=== PATIENT | female | born 1965 | race Caucasian/White ===

== ENCOUNTER 2020-04-12 11:36 | Outpatient (REF) | payer MEDICAID, SELFPAY ==
--- NOTE | ~2020-04-12 | MM_ITS ---
EXAMINATION: MM SCREENING DIGITAL BREAST TOMOSYNTHESIS, BILATERAL CLINICAL INFORMATION: Screening. Asymptomatic. The lifetime risk of breast cancer based on the Tyrer-Cuzick Model is 7%. COMPARISON: Mammography: 07/01/2018, 03/26/2012, 01/24/2011 TECHNIQUE: Digital breast tomosynthesis is performed in both the craniocaudal and mediolateral oblique views along with computer-aided detection (CAD). Synthesized 2D images are generated from the tomosynthesis. FINDINGS: There are scattered areas of fibroglandular density (ACR BI-RADS breast composition Category b). Parenchymal pattern is similar to prior exams and there is no developing density or interval mass or architectural abnormality. There is a small smooth waxing and waning nodule mid central 6:00 right breast similar to prior exams. No abnormal calcifications on the right. There are new punctate calcifications posterior upper outer left breast, possibly related to the vasculature. Patient will be recalled to further characterize. MM/MM tomosynthesis screening BI IMPRESSION: 1. Left: New calcifications posterior upper outer quadrant, possibly vascular. 2. Right: No significant changes from prior studies. ASSESSMENT: BI-RADS 0: Incomplete - Need Additional Imaging Evaluation RECOMMENDATION: 1. Additional views of the left breast (magnification exaggerated CC, magnification MLO). 2. Radiology department staff will contact the patient for additional imaging. This patient's information was entered into a reminder system with a target due date for their next mammogram.
== END 2020-04-12 11:37 | disposition home or self-care (01) ==
LOC: HO.MAMMO 11:36
PROVIDERS: PCP General Practice; Visit Provider General Practice
DX: Z12.31 Encounter for screening mammogram for malignant neoplasm of breast (principal)
CPT/HCPCS: 77063; 77067

== ENCOUNTER 2020-06-13 13:43 | Outpatient (REF) | payer MEDICAID, SELFPAY ==
--- NOTE | ~2020-06-13 | MM_ITS ---
EXAMINATION: MM DIAGNOSTIC DIGITAL MAMMOGRAPHY, LEFT CLINICAL INFORMATION: Recall from screening for calcifications posterior upper outer left breast. COMPARISON: Mammography: 04/12/2020, 07/01/2018, 03/26/2012 TECHNIQUE: Digital mammography is performed in the following views: Magnification CC, magnification MLO. FINDINGS: There are scattered areas of fibroglandular density (ACR BI-RADS breast composition Category b). There are a few calcifications in the area of interest posterior upper outer quadrant, loosely grouped 4-5 in number. Calcifications are less conspicuous than on the synthesized screening images. There are some vascular markings overlying this area. Management plan is to reassess calcifications in 6 months. Results are discussed with the patient at time of visit. MM/MM added views LT IMPRESSION: A few calcifications posterior upper outer left breast, probably benign. ASSESSMENT: BI-RADS 3: Probably Benign RECOMMENDATION: Diagnostic left mammography in 6 months. This patient's information was entered into a reminder system with a target due date for their next mammogram.
== END 2020-06-13 13:44 | disposition home or self-care (01) ==
LOC: HO.MAMMO 13:43
PROVIDERS: Visit Provider General Practice
DX: R92.1 Mammographic calcification found on diagnostic imaging of breast (principal)
CPT/HCPCS: 77065

== ENCOUNTER 2020-12-29 14:34 | Outpatient (REF) | payer MEDICAID, SELFPAY ==
--- NOTE | ~2020-12-29 | MM_ITS ---
EXAMINATION: MM DIAGNOSTIC DIGITAL BREAST TOMOSYNTHESIS, LEFT CLINICAL INFORMATION: Short interval six-month follow-up calcifications posterior upper outer left breast. The lifetime risk of breast cancer based on the Tyrer-Cuzick Model is 9%. COMPARISON: Mammography: 06/13/2020, 06/12/2020 (BI-RADS 0), 07/01/2018, 03/26/2012 TECHNIQUE: Digital breast tomosynthesis is performed in both the craniocaudal and mediolateral oblique views along with computer-aided detection (CAD). Synthesized 2D images are generated from the tomosynthesis. FINDINGS: There are scattered areas of fibroglandular density (ACR BI-RADS breast composition Category b). Parenchymal pattern is unremarkable. There is no significant mass or developing density or architectural abnormality. Loosely grouped calcifications posterior upper outer left breast are slightly coarser. On tomography, they appear to be likely related to superimposed vasculature. Calcifications will be reassessed again in 6 months at time of annual bilateral mammography. Results are provided to the patient at time of visit by the technologist. MM/MM tomosynthesis diagnostic LT IMPRESSION: No significant change posterior upper outer left calcifications, possibly related to vasculature. ASSESSMENT: BI-RADS 3: Probably Benign RECOMMENDATION: Diagnostic mammography at time of annual bilateral exam, due in 6 months. This patient's information was entered into a reminder system with a target due date for their next mammogram.
== END 2020-12-29 14:35 | disposition home or self-care (01) ==
LOC: HO.MAMMO 14:34
PROVIDERS: Visit Provider General Practice
DX: R92.1 Mammographic calcification found on diagnostic imaging of breast (principal)
CPT/HCPCS: 77061; 77065

== ENCOUNTER 2021-06-15 10:13 | Outpatient (REF) | payer MEDICAID, SELFPAY ==
--- NOTE | ~2021-06-15 | MR_ITS ---
EXAMINATION: MR BRAIN WITHOUT AND WITH CONTRAST MRI OF THE ORBITS WITHOUT AND WITH CONTRAST CLINICAL INFORMATION: Hemorrhage into left optic nerve sheath. COMPARISON: None TECHNIQUE: Multiplanar, multisequence MRI of the brain was obtained before and after the intravenous administration of 6 mL Gadavist. Multiplanar multisequence MR imaging of the orbits was done prior to and following the intravenous administration of the above. FINDINGS: MR BRAIN: Brain Volume: Within normal limits within the limitations of a qualitative assessment. Structural: No malformations. Brain and Meninges: DWI sequence demonstrates no restricted diffusion. Specifically, there is no evidence for acute or subacute cerebral ischemia. Scattered nonspecific subcentimeter T2 hyperintensities in the subcortical white matter of both cerebral hemispheres are noted, which are nonspecific findings. There is a prominent perivascular space in the right subinsular white matter. No intracranial mass lesions, abnormal enhancement, space-occupying process, mass effect, extra-axial fluid collection or hydrocephalus. Resendiz-white matter interface is preserved. Gradient refocused imaging demonstrates no evidence for hemorrhage, hemosiderin staining or abnormal mineral deposition. Ventricles and Subarachnoid Spaces: The ventricular system and subarachnoid spaces are within normal limits without hydrocephalus. Vascular: Signal voids are noted in the visualized major intracranial vessels. Osseous Structures, Sinuses/Mastoids, Extracranial Soft Tissues: Mucosal thickening in the ethmoid complex and maxillary sinuses noted with nasal septal deviation to the right. Visualized extracranial soft tissue structures appear unremarkable. Bony structures appear intact. There is spondylosis and disc degenerative change at C4-C5. MR/MR orbits face neck wo/w con IMPRESSION: 1. Nonspecific nonenhancing scattered subcortical white matter T2 hyperintensities in the cerebral hemispheres which could reflect chronic ischemic microangiopathy. 2. No acute intracranial process. No evidence for intracranial hemorrhage, extra-axial fluid collection, mass lesion, abnormal enhancement, space-occupying process, mass effect or hydrocephalus. 3. Paranasal sinus inflammatory changes. MR ORBIT FINDINGS: Globes and Lacrimal Glands: Normal, symmetric. No abnormal enhancement or proptosis. Periorbital/Preseptal soft tissues: Normal. Retrobulbar Fat: Normal signal. Extraocular Muscles/Optic Nerves: Symmetric with normal size and signal. No abnormal optic nerve sheath or optic nerve enhancement. Normal CSF signal intensity within the distal optic nerve sheaths bilaterally. Extraconal and Intraconal Spaces: Normal, no masses or enlarged vessels. Orbital Apices and Cavernous Sinuses: Normal apices; cavernous sinuses are symmetric and enhance normally. Sella/Suprasellar/Optic Apparatus: Normal, no masses or abnormal enhancement. Basil cisterns, brain stem: Normal. Osseous structures and visualized extracranial soft tissues: Intact. IMPRESSION: Unremarkable MRI of the orbits without and with contrast.
== END 2021-06-15 10:14 | disposition home or self-care (01) ==
LOC: HO.MRI 10:13
PROVIDERS: Visit Provider General Practice
DX: H53.10 Unspecified subjective visual disturbances (principal)
CPT/HCPCS: 70543; 70553; A9585

== ENCOUNTER 2021-06-30 13:30 | Outpatient (REF) | payer MEDICAID, SELFPAY ==
--- NOTE | ~2021-06-30 | MM_ITS ---
EXAMINATION: MM DIAGNOSTIC DIGITAL BREAST TOMOSYNTHESIS, BILATERAL CLINICAL INFORMATION: Loosely grouped calcifications posterior upper outer left breast for follow-up. Due for yearly. The lifetime risk of breast cancer based on the Tyrer-Cuzick Model is 8%. COMPARISON: Mammography: 12/29/2020, 06/13/2020, 04/12/2020 (BI-RADS 0), 07/01/2018, 03/26/2012 TECHNIQUE: Digital breast tomosynthesis is performed in both the craniocaudal and mediolateral oblique views along with computer-aided detection (CAD). Synthesized 2D images are generated from the tomosynthesis. Additional magnification left CC and magnification left ML views are obtained. FINDINGS: There are scattered areas of fibroglandular density (ACR BI-RADS breast composition Category b). Breast parenchymal pattern is similar to prior studies. There is no interval mass or architectural abnormality or developing density. Small nodular asymmetry central outer right breast on right CC view is similar to prior exams. The axilla and skin contours are unremarkable. No abnormal calcifications on the right. Left breast has some additional calcifications may be an anterior breasts which are vascular on tomography. The calcifications for follow-up posterior upper outer left breast are similar in number and not clearly vascular in etiology. As they have not presented as clearly vascular over time, stereotactic sampling is suggested. Results are discussed with the patient at time of visit. Management options discussed with patient. Patient wishes to proceed with stereotactic sampling. Results and recommendation called to medical front desk coordinator (Bailey) for Dr. Rodríguez on 06/30/2021. MM/MM tomosynthesis diagnostic BI IMPRESSION: Left: -Calcifications posterior upper outer left breast are not clearly vascular in etiology. There are new from 2019. Right: -No mammographic evidence of malignancy. ASSESSMENT: BI-RADS 4: Suspicious (subcategory 4A: Low suspicion for malignancy) RECOMMENDATION: Stereotactic sampling calcifications upper outer left breast. This patient's information was entered into a reminder system with a target due date for their next mammogram.
== END 2021-06-30 13:31 | disposition home or self-care (01) ==
LOC: HO.MAMMO 13:30
PROVIDERS: PCP General Practice; Visit Provider General Practice
DX: R92.1 Mammographic calcification found on diagnostic imaging of breast (principal)
CPT/HCPCS: 77062; 77066

== ENCOUNTER → 2021-07-04 08:08 | Outpatient (BNVA) | payer MEDICAID, SELFPAY | PROVIDERS: PCP General Practice; Referring Provider General Practice; Visit Provider Surgery | DX: R92.1 Mammographic calcification found on diagnostic imaging of breast (principal); R92.8 Other abnormal and inconclusive findings on diagnostic imaging of breast | CPT/HCPCS: 99202 ==

== ENCOUNTER 2021-07-06 09:35 | Outpatient (REF) | payer MEDICAID, SELFPAY ==
--- NOTE | ~2021-07-06 | MM_ITS ---
EXAMINATION: STEREOTACTIC TOMOSYNTHESIS-GUIDED VACUUM-ASSISTED BREAST BIOPSY, LEFT SPECIMEN RADIOGRAPH, LEFT POST PROCEDURE DIGITAL MAMMOGRAM, LEFT CLINICAL INFORMATION: Calcifications posterior upper outer left breast for tissue sampling. COMPARISON: Mammography 06/30/2021, 12/29/2020, 06/13/2020, 04/12/2020, 07/01/2018. TECHNIQUE/PROCEDURE: Informed consent was obtained from the patient after discussion of the benefits, risks, and alternatives to biopsy today. Patient appeared to understand. Gave opportunity for questions. Patient signed consent form. BIOPSY TABLE: [employer] Affirm Prone Biopsy System. LESION: Calcifications posterior upper outer left breast. LOCAL ANESTHESIA: 7 mL carbonated 1% lidocaine; 10 mL 1% lidocaine with epinephrine. DERMATOTOMY: Single skin emiliano dermatotomy performed. NEEDLE: Cleoiva 9-gauge vacuum assisted core biopsy device. APPROACH: lateral medial. TARGETING: Combination of digital breast tomosynthesis and stereotactic digital mammography used for targeting. CORES: 9. CLIP: [employer] T-shaped marker. SPECIMEN RADIOGRAPH: Specimen radiograph is taken in separate room using digital mammography. The index calcifications are in the excised cores. There are over 10 calcifications in the cores. POST PROCEDURE UNILATERAL DIGITAL MAMMOGRAM: The post biopsy mammogram is performed in separate room using separate digital mammography equipment from the biopsy procedure. CC and LM views are obtained. There are scattered areas of fibroglandular density (breast composition category: b). The clip marker is in position. The calcifications are decreased at the biopsy site. No gross hematoma. The patient tolerated the procedure well. No immediate complications. Home instructions reviewed with the patient. Final pathology results are pending. MM/MM stereotactic biopsy LT IMPRESSION: 1. Digital tomosynthesis-guided core biopsy left breast with clip placement. 2. Specimen radiograph taken and post procedure mammogram. There is satisfactory positioning of the biopsy clip. 3. Final pathology results pending. An addendum report will be issued.
[2021-07-06] MEDS: Lidocaine HCl 1 % 20 ML VIAL 10 ML SUBCUT (11:43)
[2021-07-06] MEDS: Sodium Bicarbonate 8.4% 50 MEQ/50 ML VIAL SUBCUT (11:45)
== END 2021-07-06 09:36 | disposition home or self-care (01) ==
LOC: HO.MAMMO 09:35
PROVIDERS: PCP General Practice; Visit Provider Surgery
DX: R92.8 Other abnormal and inconclusive findings on diagnostic imaging of breast (principal)
CPT/HCPCS: 19081; 88305; 88341; 88342; A4648

== ENCOUNTER → 2021-07-11 13:44 | Outpatient (BNVA) | payer MEDICAID, SELFPAY | PROVIDERS: PCP General Practice; Referring Provider General Practice; Visit Provider Surgery | DX: R92.8 Other abnormal and inconclusive findings on diagnostic imaging of breast (principal); D05.12 Intraductal carcinoma in situ of left breast | CPT/HCPCS: 99212 ==

== ENCOUNTER 2021-08-01 07:51 | Outpatient (REF) | payer MEDICAID, SELFPAY ==
--- NOTE | ~2021-08-01 | MM_ITS ---
EXAMINATION: STEREOTACTIC TOMOSYNTHESIS-GUIDED VACUUM-ASSISTED BREAST BIOPSY, LEFT SPECIMEN RADIOGRAPH, LEFT POST PROCEDURE DIGITAL MAMMOGRAM, LEFT CLINICAL INFORMATION: Recent diagnosis DCIS posterior upper outer left breast. Request sampling calcifications mid and anterior breast. COMPARISON: Mammography 07/06/2021, 06/30/2021, 12/29/2020, 06/13/2020, 04/12/2020. TECHNIQUE/PROCEDURE: Informed consent was obtained from the patient after discussion of the benefits, risks, and alternatives to biopsy today. Patient appeared to understand. Gave opportunity for questions. Patient signed consent form. BIOPSY TABLE: [employer] Affirm Prone Biopsy System. LESION: Calcifications mid upper outer breast approximately 3.6 cm anterior to prior sampling. LOCAL ANESTHESIA: 5 mL carbonated 1% lidocaine; 10 mL 1% lidocaine with epinephrine. DERMATOTOMY: Single skin emiliano dermatotomy performed. NEEDLE: [employer] Eviva 9-gauge vacuum assisted core biopsy device. APPROACH: lateral medial. TARGETING: Combination of digital breast tomosynthesis and stereotactic digital mammography used for targeting. CORES: 5. CLIP: [employer] Cylinder-shaped marker. SPECIMEN RADIOGRAPH: Specimen radiograph is taken in separate room using digital mammography. The index calcifications are in the excised cores. There are at least 10 calcifications in the cores. COMMENT: Patient has history of neck pain, exacerbated during positioning for the stereotactic sampling. Patient declined sampling second site at today's appointment. [facility] to reschedule for final sampling. public health assistant (Sherry) for Dr. Mo notified. POST PROCEDURE UNILATERAL DIGITAL MAMMOGRAM: The post biopsy mammogram is performed in separate room using separate digital mammography equipment from the biopsy procedure. CC and ML views are obtained. There are scattered areas of fibroglandular density (breast composition category: b). The clip marker is in position. The calcifications are decreased at the biopsy site. No gross hematoma. The patient tolerated the procedure well. No immediate complications. Home instructions reviewed with the patient. Final pathology results are pending. [facility] to reschedule for tissue sampling anterior left breast. MM/MM stereotactic biopsy LT IMPRESSION: Digital tomosynthesis-guided core biopsy left breast with clip placement. Due to neck pain, patient was unable to remain for 2nd site of tissue sampling. [facility] to reschedule with patient. 2. Specimen radiograph taken and post procedure mammogram. There is satisfactory positioning of the biopsy clip. Final pathology results pending. An addendum report will be issued.
[2021-08-01] MEDS: Lidocaine HCl 1 % 20 ML VIAL 5 ML SUBCUT (10:17)
[2021-08-01] MEDS: Sodium Bicarbonate 8.4% 50 MEQ/50 ML VIAL SUBCUT (10:21)
== END 2021-08-01 07:52 | disposition home or self-care (01) ==
LOC: HO.MAMMO 07:51
PROVIDERS: PCP General Practice; Visit Provider Surgery
DX: D05.12 Intraductal carcinoma in situ of left breast (principal); R92.8 Other abnormal and inconclusive findings on diagnostic imaging of breast; M54.2 Cervicalgia
CPT/HCPCS: 19081; 88305; 88360; A4648

== ENCOUNTER → 2021-08-03 14:22 | Outpatient (BNVA) | payer MEDICAID, SELFPAY | PROVIDERS: PCP General Practice; Visit Provider Surgery | DX: D05.12 Intraductal carcinoma in situ of left breast (principal) | CPT/HCPCS: 99212 ==

== ENCOUNTER 2021-08-07 06:26 | Day surgery (SDC) | payer MEDICAID, SELFPAY ==
--- NOTE | 2021-08-04 11:18 | HO.ANESPROP2 ---
HPI - Anesthesia Eval Consult details Narrative: 55yo F for Left Breast Lumpectomy/Needle Loc PMFSH Active Problems Active Problems: All Active Problems (Updated 07/11/21 @ 14:30 by Osman Mo MD) Ductal carcinoma in situ (DCIS) of left breast (Acute) Abnormal mammogram of left breast (Acute) Family History Family History Maternal Aunt Breast cancer, Onset Age: 40 Surgical History Surgical History (Updated 08/15/21 @ 15:11 by KAREN Huber) History of lumpectomy of left breast (08/07/21) Social History Social History Alcohol intake: current Alcohol intake frequency: does not drink Patient Tobacco Use Status: Current everyday Tobacco user Tobacco use type: Cigarette Cigarettes Per Day: 15 Meds Allergies Allergy/AdvReac Type Severity Reaction Status Date / Time No Known Allergies Allergy Unverified 08/15/21 15:09 Home Medications Medication Instructions Recorded Confirmed Last Taken Type cetirizine 10 mg tablet 10 mg PO DAILY allergies 07/04/21 08/03/21 Unknown History cholecalciferol (vitamin D3) 25 25 mcg PO DAILY 07/04/21 08/03/21 Unknown History mcg (1,000 unit) capsule (Vitamin D3) cyanocobalamin (vitamin B-12) 1,000 mcg PO DAILY 07/04/21 08/03/21 Unknown History 1,000 mcg tablet (Vitamin B-12) cyclobenzaprine 5 mg tablet 5 mg PO muscle spasm 07/04/21 08/03/21 Unknown History folic acid 1 mg tablet 1 mg PO DAILY 07/04/21 08/03/21 Unknown History naproxen 250 mg tablet 250 mg PO BID 07/04/21 08/03/21 Unknown History rosuvastatin 40 mg tablet 40 mg PO DAILY 07/04/21 08/03/21 Unknown History thiamine HCl (vitamin B1) 100 mg 100 mg PO DAILY 07/04/21 08/03/21 Unknown History tablet (Vitamin B-1) Exam Exam Date and Time: August 04, 2021 1118 Assessment and Plan Assessment Anesthesia Assessment: Chart Reviewed
--- NOTE | ~2021-08-07 | MM_ITS ---
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 Retroareolar sampling not performed as patient had neck pain during prior procedure. Surgical sampling left retroareolar region to be included at time of excision of the other 2 confirmed sites of left DCIS. Localization plans discussed with surgeon on 08/04/2021. COMPARISON: Mammography 06/30/2021, 07/06/2021, 08/01/2021. TECHNIQUE NEEDLE LOC: Proper informed consent is obtained from the patient after discussion of the procedure, potential risks and complications, and alternatives including declining the procedure today. Patient was given an opportunity for questions. The patient appeared to understand. The patient consented to the procedure and signed the consent form. GUIDANCE: Digital mammography. APPROACH: Lateral Medial at all 3 sites. TARGET: 3 sites: -Posterior outer T shaped clip marker. -Mid outer cylinder shaped clip marker. -Anterior: retroareolar region. ANESTHESIA: Carbonated lidocaine 1%: -Posterior 5 mL. -Mid 6 mL. -Anterior: 7 mL. LOCALIZATION MARKERS: [place] [employer] x 3: -Posterior 7.5 cm length. -Mid: 5 cm length. -Anterior: 5 cm length. The skin is prepped and local anesthesia administered. The needles are positioned and locations assessed with mammography. The wires are hooked into position. Three [place] needle protectors placed. The patient tolerated the procedure well and had no immediate complication. Localization procedure findings discussed with Dr. Mo prior to surgery. TECHNIQUE SPECIMEN RADIOGRAPH 1: The posterior and middle localizations are excised together in 1 continuous specimen. One view is obtained. FINDINGS SPECIMEN RADIOGRAPH 1: The specimen shows the distal two needles and hookwires are delivered intact. The two biopsy clip markers and index calcifications are identified in the specimen. Results were called to Dr. Osman Mo in the operating room at the time of imaging. TECHNIQUE SPECIMEN RADIOGRAPH 2: The anterior breast specimen is sent separately. One view is obtained. FINDINGS SPECIMEN RADIOGRAPH 2: The specimen shows the distal needle and hookwire are delivered intact. There are at least 7 calcifications in the specimen adjacent to the localization needle. Results were called to Dr. Osman Mo in the operating room at the time of imaging. MM/MM needle loc LT IMPRESSION: 1. Status post left breast needle localization (3 sites) with 3 wires hooked into position. 2. Post operative specimen radiographs obtained.
--- NOTE | ~2021-08-07 | MM_ITS ---
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 Retroareolar sampling not performed as patient had neck pain during prior procedure. Surgical sampling left retroareolar region to be included at time of excision of the other 2 confirmed sites of left DCIS. Localization plans discussed with surgeon on 08/04/2021. COMPARISON: Mammography 06/30/2021, 07/06/2021, 08/01/2021. TECHNIQUE NEEDLE LOC: Proper informed consent is obtained from the patient after discussion of the procedure, potential risks and complications, and alternatives including declining the procedure today. Patient was given an opportunity for questions. The patient appeared to understand. The patient consented to the procedure and signed the consent form. GUIDANCE: Digital mammography. APPROACH: Lateral Medial at all 3 sites. TARGET: 3 sites: -Posterior outer T shaped clip marker. -Mid outer cylinder shaped clip marker. -Anterior: retroareolar region. ANESTHESIA: Carbonated lidocaine 1%: -Posterior 5 mL. -Mid 6 mL. -Anterior: 7 mL. LOCALIZATION MARKERS: [place] Mamma[employer] x 3: -Posterior 7.5 cm length. -Mid: 5 cm length. -Anterior: 5 cm length. The skin is prepped and local anesthesia administered. The needles are positioned and locations assessed with mammography. The wires are hooked into position. Three [place] needle protectors placed. The patient tolerated the procedure well and had no immediate complication. Localization procedure findings discussed with Dr. Mo prior to surgery. TECHNIQUE SPECIMEN RADIOGRAPH 1: The posterior and middle localizations are excised together in 1 continuous specimen. One view is obtained. FINDINGS SPECIMEN RADIOGRAPH 1: The specimen shows the distal two needles and hookwires are delivered intact. The two biopsy clip markers and index calcifications are identified in the specimen. Results were called to Dr. Osman Mo in the operating room at the time of imaging. TECHNIQUE SPECIMEN RADIOGRAPH 2: The anterior breast specimen is sent separately. One view is obtained. FINDINGS SPECIMEN RADIOGRAPH 2: The specimen shows the distal needle and hookwire are delivered intact. There are at least 7 calcifications in the specimen adjacent to the localization needle. Results were called to Dr. Osman Mo in the operating room at the time of imaging. MM/MM needle loc ea add IMPRESSION: 1. Status post left breast needle localization (3 sites) with 3 wires hooked into position. 2. Post operative specimen radiographs obtained.
--- NOTE | ~2021-08-07 | MM_ITS ---
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 Retroareolar sampling not performed as patient had neck pain during prior procedure. Surgical sampling left retroareolar region to be included at time of excision of the other 2 confirmed sites of left DCIS. Localization plans discussed with surgeon on 08/04/2021. COMPARISON: Mammography 06/30/2021, 07/06/2021, 08/01/2021. TECHNIQUE NEEDLE LOC: Proper informed consent is obtained from the patient after discussion of the procedure, potential risks and complications, and alternatives including declining the procedure today. Patient was given an opportunity for questions. The patient appeared to understand. The patient consented to the procedure and signed the consent form. GUIDANCE: Digital mammography. APPROACH: Lateral Medial at all 3 sites. TARGET: 3 sites: -Posterior outer T shaped clip marker. -Mid outer cylinder shaped clip marker. -Anterior: retroareolar region. ANESTHESIA: Carbonated lidocaine 1%: -Posterior 5 mL. -Mid 6 mL. -Anterior: 7 mL. LOCALIZATION MARKERS: [place] Mamma[employer] x 3: -Posterior 7.5 cm length. -Mid: 5 cm length. -Anterior: 5 cm length. The skin is prepped and local anesthesia administered. The needles are positioned and locations assessed with mammography. The wires are hooked into position. Three [place] needle protectors placed. The patient tolerated the procedure well and had no immediate complication. Localization procedure findings discussed with Dr. Mo prior to surgery. TECHNIQUE SPECIMEN RADIOGRAPH 1: The posterior and middle localizations are excised together in 1 continuous specimen. One view is obtained. FINDINGS SPECIMEN RADIOGRAPH 1: The specimen shows the distal two needles and hookwires are delivered intact. The two biopsy clip markers and index calcifications are identified in the specimen. Results were called to Dr. Osman Mo in the operating room at the time of imaging. TECHNIQUE SPECIMEN RADIOGRAPH 2: The anterior breast specimen is sent separately. One view is obtained. FINDINGS SPECIMEN RADIOGRAPH 2: The specimen shows the distal needle and hookwire are delivered intact. There are at least 7 calcifications in the specimen adjacent to the localization needle. Results were called to Dr. Osman Mo in the operating room at the time of imaging. MM/MM needle loc ea add IMPRESSION: 1. Status post left breast needle localization (3 sites) with 3 wires hooked into position. 2. Post operative specimen radiographs obtained.
[2021-08-07 06:55] VITALS: BMI 22.6
[2021-08-07 06:57] VITALS: BP 114/59; PULSE 75; RESP 16; TEMP 35.9; O2SAT 98
[2021-08-07] MEDS: Lactated Ringers 1,000 ML 100 ML IVCONT (07:16)
--- NOTE | 2021-08-07 09:33 | MHC.SHP ---
Pre-Procedural Eval Section A Date of Service: 08/07/21 The patient is an INPATIENT: No Changes since office visit: Yes Patient answered all questions; No Cold of Flu in the past 2 weeks, No New Medical Problems and No Changes in Medication The History & Physical has been completed within 30 days and I have reviewed it.: Yes Section B Chief Complaint: intraductal carcinoma Allergies: Allergies Allergy/AdvReac Type Severity Reaction Status Date / Time No Known Allergies Allergy Unverified 08/03/21 14:41 Plan Diagnosis/Plan: Unchanged I have reviewed the history and physical and performed a pertinent physical examination on my patient. No changes have occurred unless specified.
[2021-08-07] MEDS: Lidocaine HCl 1 % 20 ML VIAL 27 ML SUBCUT (09:36)
--- NOTE | 2021-08-07 09:36 | HO.ANESPROP2 ---
[facility] Active Problems Active Problems: All Active Problems (Updated 07/11/21 @ 14:30 by Osman Mo MD) Ductal carcinoma in situ (DCIS) of left breast (Acute) Abnormal mammogram of left breast (Acute) Past Medical History Patient : No Family History Family History Maternal Aunt Breast cancer, Onset Age: 40 Family history of problems with anesthesia: No Surgical History History of Problems with Anesthesia: No Social History Social History Alcohol intake: current Alcohol intake frequency: does not drink Patient Tobacco Use Status: Current everyday Tobacco user Tobacco use type: Cigarette Cigarettes Per Day: 15 Use of substances other than those prescribed or required for medical reasons: Yes Substance Use Frequency: Daily Are you DNR?: No Advance Directives: No Advance Directives Information Provided: Yes Meds Allergies Allergy/AdvReac Type Severity Reaction Status Date / Time No Known Allergies Allergy Unverified 08/03/21 14:41 Active Medications: Current Medications Albuterol Sulfate (Albuterol Sulfate (0.083%) 2.5 Mg/3 Ml Vial.Neb) 2.5 mg INHALE ONCE PRN PRN Reason: Shortness of Breath/Wheezing Fentanyl (Fentanyl Citrate/Pf 100 Mcg/2 Ml Vial) 25 mcg IVPUSH Q5M PRN; Protocol PRN Reason: Pain, Moderate (Pain Scale 4-6 Lactated Ringer's (Lr) 1,000 mls @ 100 mls/hr IVCONT .Q10H JOZEF Last Admin: 08/07/21 07:16 Dose: 100 mls/hr Lidocaine HCl (Lidocaine Hcl 1 % 20 Ml Vial) 27 ml SUBCUT ONCE ONE Stop: 08/07/21 09:36 Ondansetron HCl (Ondansetron Hcl 4 Mg/2 Ml Vial) 4 mg IVPUSH ONCE PRN PRN Reason: Nausea and Vomiting Oxycodone HCl (Oxycodone Hcl Immed Release 5 Mg Tablet) 5 mg PO ONCE PRN PRN Reason: Pain, Severe (Pain Scale 7-10) Home Medications Medication Instructions Recorded Confirmed Last Taken Type cetirizine 10 mg tablet 10 mg PO DAILY allergies 07/04/21 08/03/21 Unknown History cholecalciferol (vitamin D3) 25 25 mcg PO DAILY 07/04/21 08/03/21 Unknown History mcg (1,000 unit) capsule (Vitamin D3) cyanocobalamin (vitamin B-12) 1,000 mcg PO DAILY 07/04/21 08/03/21 Unknown History 1,000 mcg tablet (Vitamin B-12) cyclobenzaprine 5 mg tablet 5 mg PO muscle spasm 07/04/21 08/03/21 Unknown History folic acid 1 mg tablet 1 mg PO DAILY 07/04/21 08/03/21 Unknown History naproxen 250 mg tablet 250 mg PO BID 07/04/21 08/03/21 Unknown History rosuvastatin 40 mg tablet 40 mg PO DAILY 07/04/21 08/03/21 Unknown History thiamine HCl (vitamin B1) 100 mg 100 mg PO DAILY 07/04/21 08/03/21 Unknown History tablet (Vitamin B-1) Exam Exam Date and Time: August 07, 2021 0936 Height,Weight and Vital Signs: Height 5 ft 4 in Weight 59.874 kg Last Vital Signs Temp 96.6 F L 08/07/21 06:57 Pulse 75 08/07/21 06:57 Resp 16 08/07/21 06:57 BP 114/59 L 08/07/21 06:57 Pulse Ox 98 08/07/21 06:57 O2 Del Method 08/07/21 06:57 Airway Mallampati Class: I TM Dist: >3cm Neck ROM: Full Loose/Missing/Broken Teeth: No Heart: rrr Lungs: clear Assessment and Plan Final Anesthetic Review Family History of Problems with Anesthesia: No History of Problems with Anesthesia: No NPO: Yes ASA Class: II Final Preanesthetic Review: No Changes in Pt Med Stat, Meds/Allgs Chart Reviewed, Consent Obtained/Reviewed and Anes Risks/Benef Reviewed Patient Risk: Low Procedure Risk: Low Anesthetic Plan Anesthetic Plan: GA Disposition: Standard PACU
[2021-08-07] MEDS: Sodium Bicarbonate 8.4% 50 MEQ/50 ML VIAL SUBCUT (09:38)
--- NOTE | 2021-08-07 11:26 | W.PM.OPN ---
Operative Note Operative Note Date of Service: 08/07/21 Narrative: Preoperative diagnosis: Ductal carcinoma in situ left breast Postoperative diagnosis: same Procedure: left breast lumpectomy with needle localization Surgeon: Osman Mo MD Fermenter Champagne: Claire Nascimento PA-C; Denice Oreilly Anesthesia:General LMA Indications for procedure: 55-year-old female patient presenting with a recent mammogram with 3 clusters of calcifications Located in the left breast. She underwent stereotactic guided core biopsy of 2 lesions could not tolerate biopsy of the 3rd lesion located in the subareolar location. The 1st 2 lesions were determined to be ductal carcinoma in situ. She presents now for wide excision of the 1st 2 lesions as well as biopsy of the 3rd subareolar lesion. Operative findings: Biopsy clip found in specimen x-ray. Gross pathology confirmed biopsy cavity within the specimen. Specimen: Left breast lumpectomy lateral, left subareolar lumpectomy Estimated blood loss: 10 mL Complications: none Procedure details: patient was brought to the OR placed in a supine position. After administering general anesthesia the patient's left breast was prepped with ChloraPrep and draped in a sterile fashion. A surgical time-out was called the consent confirmed. Patient received preoperative antibiotics and Venodyne boots were in place. Local anesthesia consisting of 0.5% Sensorcaine with epinephrine was then infiltrated around the localizing needles. Two lateral needles contain the area ductal carcinoma in situ. Incision was made between the 2 needles carried out through subcutaneous tissue. Superior inferior skin flaps were then created with electrocautery. A core tissue surrounding the localizing needle was then obtained. Specimen was removed and sent to pathology for further examination. Specimen included posterior breast tissue down to the pectoralis muscle. Specimen was marked with a long suture on the lateral margin short suture on the superior margin, and loop suture in the posterior margin. Hemostasis was assured using electrocautery and free ties of 3-0 Polysorb suture. Attention was then directed to the subareolar lesion. Curvilinear incision was made at the margin of a areola with a scalpel. This was carried out through subcutaneous tissue. Superior inferior skin flaps were then created. A core of tissue surrounding the localizing needle was then excised along with the needle. This was sent to pathology for further examination. Specimen x-ray confirmed calcifications within the specimen. Hemostasis was assured using electrocautery. Both wounds were irrigated with saline solution suctioned dry. Wounds were again checked for hemostasis. Deep breast tissue was closed in the lateral incision using interrupted 3-0 Polysorb sutures. Superficial breast tissue and dermis were then reapproximated using interrupted 3-0 Polysorb sutures. Skin was closed using a running subcuticular 4-0 Polysorb suture. A 2nd incision was similarly closed using interrupted 3-0 Polysorb sutures in deep breast tissue and 3-0 Polysorb suture to close dermis. Skin was then closed using a running subcuticular 4-0 Polysorb suture. Steri-Strips, 2 x 2 gauze and Tegaderm were then applied to both incisions. The patient tolerated the procedure well. Sponge, instrument, needle counts reported as correct. Patient was transferred to PACU in stable condition.
[2021-08-07 11:45] VITALS: BP 136/77; PULSE 75; RESP 16; TEMP 36.7; O2SAT 99
[2021-08-07 11:50] VITALS: BP 139/77; PULSE 76; RESP 16; O2SAT 98
[2021-08-07 11:55] VITALS: BP 137/75; PULSE 77; RESP 16; O2SAT 98
[2021-08-07 12:00] VITALS: BP 140/76; PULSE 73; RESP 16; O2SAT 98
[2021-08-07 12:15] VITALS: BP 126/71; PULSE 67; RESP 18; TEMP 36.7; O2SAT 98
== END 2021-08-07 12:54 | disposition home or self-care (01) ==
PROVIDERS: PCP General Practice; Visit Provider Surgery
PROC: (CPT 19301; principal; 2021-08-07 09:10)
DX: D05.12 Intraductal carcinoma in situ of left breast (principal); Z17.0 Estrogen receptor positive status [ER+]; F17.210 Nicotine dependence, cigarettes, uncomplicated
CPT/HCPCS: 19301 ×2; 19281; 19282; 88307; 88329; A4648; J0690; J1100; J2250; J3010

== ENCOUNTER → 2021-08-15 14:59 | Outpatient (BNVA) | payer MEDICAID, SELFPAY | PROVIDERS: PCP General Practice; Visit Provider Surgery | DX: Z48.3 Aftercare following surgery for neoplasm (principal); D05.12 Intraductal carcinoma in situ of left breast | CPT/HCPCS: 99212 ==

== ENCOUNTER 2021-09-02 23:15 | Emergency (ER) | payer MEDICAID, SELFPAY ==
[2021-09-02 23:46] VITALS: BP 147/72; PULSE 72; RESP 16; TEMP 36.4; O2SAT 100; BMI 23.1
== END 2021-09-03 05:45 | disposition left against medical advice (07) ==
PROVIDERS: Emergency Provider Emergency Medicine; PCP General Practice
DX: G89.18 Other acute postprocedural pain (principal); F12.90 Cannabis use, unspecified, uncomplicated; Z98.890 Other specified postprocedural states
CPT/HCPCS: 99281

== ENCOUNTER 2021-09-03 20:07 | Emergency (ER) | payer MEDICAID, SELFPAY ==
[2021-09-03 20:11] VITALS: BP 126/72; PULSE 89; RESP 18; TEMP 37; O2SAT 99; BMI 23.0
--- NOTE | 2021-09-03 23:32 | ED.WOUNDLAC ---
HPI - Wound/Laceration General Chief Complaint: Wound/Laceration Stated Complaint: Bleeding at Surgical Site L Breast Time Seen by Provider: 09/03/21 23:31 Source: patient Mode of arrival: ambulatory Limitations: no limitations History of Present Illness HPI narrative: Patient post lumpectomy of left breast about a month ago for last 2 days noticed sanguinous discharge at the site of the incision no surrounding erythema no significant increase in the pain no fever or chills Related Data Home Medications Medication Instructions Recorded Confirmed cetirizine 10 mg tablet 10 mg PO DAILY allergies 07/04/21 08/17/21 cholecalciferol (vitamin D3) 25 25 mcg PO DAILY 07/04/21 08/17/21 mcg (1,000 unit) capsule (Vitamin D3) cyanocobalamin (vitamin B-12) 1,000 mcg PO DAILY 07/04/21 08/17/21 1,000 mcg tablet (Vitamin B-12) cyclobenzaprine 5 mg tablet 5 mg PO muscle spasm 07/04/21 08/17/21 folic acid 1 mg tablet 1 mg PO DAILY 07/04/21 08/17/21 naproxen 250 mg tablet 250 mg PO BID 07/04/21 08/17/21 rosuvastatin 40 mg tablet 40 mg PO DAILY 07/04/21 08/17/21 thiamine HCl (vitamin B1) 100 mg 100 mg PO DAILY 07/04/21 08/17/21 tablet (Vitamin B-1) Previous Rx's Medication Instructions Recorded oxycodone 5 mg tablet 5 mg PO Q6H PRN pain (scale score 08/07/21 7-10) #15 tabs oxycodone 5 mg tablet 5 mg PO Q6H PRN pain #20 tabs 09/03/21 Allergies Allergy/AdvReac Type Severity Reaction Status Date / Time No Known Allergies Allergy Verified 09/03/21 20:08 Review of Systems Review of Systems: Yes all other systems are reviewed and are negative PMFSH Past Medical History Surgical History History of lumpectomy of left breast (08/07/21) Family History Family History Maternal Aunt Breast cancer, Onset Age: 40 Social History Social History Alcohol intake: current Alcohol intake frequency: does not drink Patient Tobacco Use Status: Current everyday Tobacco user Tobacco use type: Cigarette Cigarettes Per Day: 15 Physical Exam Vital Signs: Vital Signs: Last Vital Signs Temp 98.6 F 09/03/21 20:11 Pulse 89 09/03/21 20:11 Resp 18 09/03/21 20:11 BP 126/72 09/03/21 20:11 Pulse Ox 99 09/03/21 20:11 O2 Del Method 09/03/21 20:11 BMI result Body Mass Index 23.0 Appearance: Alert. Oriented X3. No acute distress. Eyes: No pallor or icterus ENT: Pharynx normal. Oral Mucosa moist Neck: Normal inspection. Neck supple. CVS: Normal heart rate and rhythm. Pulses normal. Respiratory: No respiratory distress. Equal air entry bilateral, Abdomen: Soft and nontender. Bowel sounds are present, Skin: Skin warm and dry. Normal skin color. Normal skin turgor. Slight sanguinous discharge at the site of the incision left breast no fluctuant mass wound looks healthy otherwise Extremities: No lower extremity edema. No calf tenderness Neuro: Oriented X 3. Discharge Plan Discharge Clinical Impression: Seroma of breast Patient Disposition: Home, Self-Care Instructions: Seroma (DC) Additional Instructions: Local care as advised Follow-up with surgeon as scheduled Prescriptions: New oxycodone 5 mg tablet 5 mg PO Q6H PRN (Reason: pain) Qty: 20 0RF Rx Instructions: Partial Fill upon patient request. No Action oxycodone 5 mg tablet 5 mg PO Q6H PRN (Reason: pain (scale score 7-10)) Qty: 15 0RF Rx Instructions: Partial Fill upon patient request. rosuvastatin 40 mg tablet 40 mg PO DAILY cyclobenzaprine 5 mg tablet 5 mg PO naproxen 250 mg tablet 250 mg PO BID cholecalciferol (vitamin D3) [Vitamin D3] 25 mcg (1,000 unit) capsule 25 mcg PO DAILY folic acid 1 mg tablet 1 mg PO DAILY thiamine HCl (vitamin B1) [Vitamin B-1] 100 mg tablet 100 mg PO DAILY cyanocobalamin (vitamin B-12) [Vitamin B-12] 1,000 mcg tablet 1,000 mcg PO DAILY cetirizine 10 mg tablet 10 mg PO DAILY
== END 2021-09-03 23:59 | disposition home or self-care (01) ==
PROVIDERS: Emergency Provider Internal Medicine; PCP General Practice
DX: L76.34 Postprocedural seroma of skin and subcutaneous tissue following other procedure (principal); N64.89 Other specified disorders of breast; F17.210 Nicotine dependence, cigarettes, uncomplicated; Z71.6 Tobacco abuse counseling; Z79.899 Other long term (current) drug therapy
CPT/HCPCS: 99282

== ENCOUNTER 2022-11-08 08:18 | Outpatient (REF) | payer MEDICAID, SELFPAY ==
[2022-11-08 11:04] LABS: MANUAL DIFF FLAG NO
[2022-11-08 11:28] LABS: Basophils Absolute Auto 0.1 X10*3/uL (0.0-0.2); Basophils Percent Auto 1.5 % (0-2); Eosinophils Absolute Auto 0.2 X10*3/uL (0.0-0.4); Eosinophils Percent Auto 3.5 % (0-4); Hematocrit 41.6 % (37.0-47.0); Hemoglobin 14.3 g/dl (12.0-16.0); Imm Gran Abs Auto 0.02 X10*3/uL (0.00-0.03); Imm Gran Pct Auto 0.3 % (0.0-0.4); Lymphocytes Absolute Auto 2.5 X10*3/uL (1.2-4.9); Lymphocytes Percent Auto 36.3 % (20-40); Mean Corpuscular HGB Conc 34.4 g/dl (31.0-35.0); Mean Corpuscular Hemoglobin 32.1 pg (27.0-33.0); Mean Corpuscular Volume 93.5 fL (80.0-98.0); Mean Platelet Volume 10.5 fL (9.4-12.3); Monocytes Absolute Auto 0.7 X10*3/uL (0.1-1.2); Monocytes Percent Auto 9.9 % (2-11); Neutrophils Absolute Auto 3.3 x10*3/uL (2.0-8.3); Neutrophils Percent Auto 48.5 % (45-73); Platelet Count 276 X10*3/uL (160-400); Red Blood Count 4.45 X10*6/uL (4.20-5.50); Red Cell Distribution Width 13.3 % (11.0-16.0); White Blood Count 6.8 X10*3/uL (4.8-10.8)
[2022-11-08 11:48] LABS: Alanine Aminotransferase 64 U/L (0-31); Albumin Level 4.5 g/dL (3.5-5.0); Alkaline Phosphatase 93 U/L (39-117); Anion Gap 17 (12-20); Aspartate Amino Transferase 78 U/L (5-31); Bilirubin Total 0.7 mg/dL (0.0-1.0); Blood Urea Nitrogen 5 mg/dL (9-16); Calcium 10.1 mg/dL (8.4-10.2); Carbon Dioxide 24 mmol/L (22-29); Chloride 103 mmol/L (96-108); Cholesterol 357 mg/dL (<200); Estimated Glomerular Filt Rate > 60; Glucose Random 83 mg/dL (60-115); HDL Cholesterol 103 mg/dL (>40); LDL Cholesterol Calculated 239 mg/dL (<100); Potassium 4.3 mmol/L (3.3-5.1); Sodium 140 mmol/L (135-145); Total Protein 7.7 g/dL (6.5-8.0); Triglycerides 79 mg/dL (<150)
== END 2022-11-08 08:19 | disposition home or self-care (01) ==
LOC: HO.10HDL 08:18
PROVIDERS: Visit Provider General Practice
DX: E78.00 Pure hypercholesterolemia, unspecified (principal)
CPT/HCPCS: 36415; 80053; 80061; 85025

== ENCOUNTER 2023-07-30 10:37 | Outpatient (REF) | payer OTHER, SELFPAY ==
--- NOTE | ~2023-07-30 | MM_ITS ---
EXAMINATION: MM SCREENING DIGITAL BREAST TOMOSYNTHESIS, BILATERAL CLINICAL INFORMATION: Screening. Asymptomatic. Patient is status post left mastectomy. COMPARISON: Mammography: This study is compared with prior exams dating back to 2019. TECHNIQUE: Digital breast tomosynthesis is performed in both the craniocaudal and mediolateral oblique views along with computer-aided detection (CAD). Synthesized 2D images are generated from the tomosynthesis. FINDINGS: There are scattered areas of fibroglandular density (ACR BI-RADS breast composition Category b). There are no significant masses, abnormal calcifications, or other abnormalities. MM/MM tomosynthesis screening RT IMPRESSION: No mammographic evidence of malignancy. ASSESSMENT: BI-RADS BI-RADS 1 - Negative RECOMMENDATION: Routine annual mammography screening. 1 year F/U This examination should not preclude the clinical evaluation of a suspicious palpable abnormality. This patient's information was entered into a reminder system with a target due date for their next mammogram.
== END 2023-07-30 10:38 | disposition home or self-care (01) ==
LOC: HO.MAMMO 10:37
PROVIDERS: PCP General Practice; Visit Provider General Practice
DX: Z12.31 Encounter for screening mammogram for malignant neoplasm of breast (principal)
CPT/HCPCS: 77063; 77067

== ENCOUNTER → 2023-07-30 11:00 | Outpatient (BNV) | payer OTHER, SELFPAY | PROVIDERS: PCP General Practice; Visit Provider Radiology Diagnostic Radiology | DX: Z12.31 Encounter for screening mammogram for malignant neoplasm of breast (principal) | CPT/HCPCS: 77063; 77067 ==

== ENCOUNTER 2024-07-05 00:53 | Emergency (ER) | payer OTHER, SELFPAY ==
--- NOTE | ~2024-07-05 | XR_ITS ---
CLINICAL HISTORY: Fall; pain RIGHT KNEE X-RAYS COMPARISON: None. FINDINGS: A total of four views of the right knee were obtained. No evidence of an acute fracture or dislocation within the right knee. Mild tricompartmental degenerative changes are noted. A tiny suprapatellar effusion is suspected. No metallic foreign body. IMPRESSION: 1. No evidence of an acute fracture or dislocation. 2. Mild tricompartmental degenerative changes. Tiny suprapatellar effusion is suspected. This document has been electronically signed by: Omid Beasley M.D. on 07/05/2024 02:38:50
[2024-07-05 00:57] VITALS: BP 142/54; PULSE 81; RESP 14; TEMP 36.4; O2SAT 100; BMI 20.9
--- NOTE | 2024-07-05 01:45 | ED_ITS ---
HPI - General Adult General Chief complaint: Extremity Injury, Lower Stated complaint: right side knee pain Time Seen by Provider: 07/05/24 01:24 Source: patient Limitations: no limitations History of Present Illness ED Provider: Annalee Gardner PA-C HPI narrative: 58-year-old female presents with right knee pain. Patient states she lost her balance, she landed on both knees. Now with right knee pain. Related Data Home Medications ?Medication ?Instructions ?Recorded ?Confirmed cetirizine 10 mg tablet 10 mg PO DAILY allergies 07/04/21 08/17/21 cholecalciferol (vitamin D3) 25 25 mcg PO DAILY 07/04/21 08/17/21 mcg (1,000 unit) capsule (Vitamin D3) cyanocobalamin (vitamin B-12) 1,000 mcg PO DAILY 07/04/21 08/17/21 1,000 mcg tablet (Vitamin B-12) cyclobenzaprine 5 mg tablet 5 mg PO muscle spasm 07/04/21 08/17/21 folic acid 1 mg tablet 1 mg PO DAILY 07/04/21 08/17/21 naproxen 250 mg tablet 250 mg PO BID 07/04/21 08/17/21 rosuvastatin 40 mg tablet 40 mg PO DAILY 07/04/21 08/17/21 thiamine HCl (vitamin B1) 100 mg 100 mg PO DAILY 07/04/21 08/17/21 tablet (Vitamin B-1) Previous Rx's ?Medication ?Instructions ?Recorded oxycodone 5 mg tablet 5 mg PO Q6H PRN pain (scale score 08/07/21 7-10) #15 tabs oxycodone 5 mg tablet 5 mg PO Q6H PRN pain #20 tabs 09/03/21 Allergies Allergy/AdvReac Type Severity Reaction Status Date / Time No Known Allergies Allergy Verified 07/05/24 01:00 Review of Systems Review of Systems: Yes all other systems are reviewed and are negative Constitutional: Constitutional: Denies fatigue and Denies fever(s) Musculoskeletal: Musculoskeletal: Reports arthralgias Endocrine: Endocrine: Denies fatigue PMFSH Past Medical History Attestation statement: The following information was validated with the patient. Surgical History History of lumpectomy of left breast (08/07/21) Family History Family History Maternal Aunt Breast cancer, Onset Age: 40 Social History Social History Alcohol intake: current Alcohol intake frequency: does not drink Patient Tobacco Use Status: Current everyday Tobacco user Tobacco use type: Cigarette Cigarettes Per Day: 15 Advance Directives: No Advance Directives Information Provided: No Do you have a plan to hurt others: No Plan Physical Exam ED Vital Signs: Vital Signs - 24 hr 07/05/24 00:57 Temperature 97.5 F Pulse Rate 81 Respiratory Rate 14 Blood Pressure 142/54 H Pulse Oximetry 100 Oxygen Delivery Method Room Air BMI result Body Mass Index 20.9 Const Other: Alert Orientation/consciousness: patient oriented x3 Resp Effort & Inspection: normal respiratory effort Cardio Other: Normal peripheral perfusion Skin Other: Warm dry no rash Neuro General: patient oriented x3, gait normal, no focal motor deficits and CN's II- XI intact bilaterally Psych Other: Cooperative Medical Decision Making Medical Decision Making MDM Narrative: 58-year-old female presents with right knee pain. Patient states she lost her balance, she landed on both knees. Now with right knee pain. No relevant chronic issues History: Per patient I have considered the following differential diagnoses: Fracture, dislocation, contusion, sprain Plan: X-ray ordered from triage I have independently reviewed the following tests: X-ray right knee: Arthritic changes, no fracture no dislocation per my read Discharge Plan Discharge Clinical Impression: Contusion of knee, right Patient Disposition: Home, Self-Care Instructions: Contusion in Adults (ED) Additional Instructions: The x-ray was negative for fracture or dislocation, you do have some arthritis. See home care instructions. Ice the area several times a day for 15 minutes each time. You can use [id number] Tylenol 1000 mg taken every 8 hours, alternated with ibuprofen 600 mg taken every 6 hours with food. Follow up with primary care provider as needed. Prescriptions: No Action oxycodone 5 mg tablet 5 mg PO Q6H PRN (Reason: pain) Qty: 20 0RF Rx Instructions: Partial Fill upon patient request. oxycodone 5 mg tablet 5 mg PO Q6H PRN (Reason: pain (scale score 7-10)) Qty: 15 0RF Rx Instructions: Partial Fill upon patient request. rosuvastatin 40 mg tablet 40 mg PO DAILY cyclobenzaprine 5 mg tablet 5 mg PO naproxen 250 mg tablet 250 mg PO BID cholecalciferol (vitamin D3) [Vitamin D3] 25 mcg (1,000 unit) capsule 25 mcg PO DAILY folic acid 1 mg tablet 1 mg PO DAILY thiamine HCl (vitamin B1) [Vitamin B-1] 100 mg tablet 100 mg PO DAILY cyanocobalamin (vitamin B-12) [Vitamin B-12] 1,000 mcg tablet 1,000 mcg PO DAILY cetirizine 10 mg tablet 10 mg PO DAILY Print Language: [place]
[2024-07-05 02:29] VITALS: BP 109/62; PULSE 85; RESP 16; TEMP 36.4; O2SAT 98
[2024-07-05 02:51] VITALS: BP 109/62; PULSE 85; RESP 16; TEMP 36.4; O2SAT 98
== END 2024-07-05 02:53 | disposition home or self-care (01) ==
PROVIDERS: Emergency Provider Emergency Medicine Emergency Medical Services; PCP General Practice
DX: S80.01XA Contusion of right knee, initial encounter (principal); M25.561 Pain in right knee; X58.XXXA Exposure to other specified factors, initial encounter; Y93.9 Activity, unspecified; Y92.9 Unspecified place or not applicable; Y99.8 Other external cause status; F17.210 Nicotine dependence, cigarettes, uncomplicated; Z79.899 Other long term (current) drug therapy
CPT/HCPCS: 73564; 99283

== ENCOUNTER → 2024-07-05 01:25 | Outpatient (BNV) | payer OTHER, SELFPAY | PROVIDERS: Emergency Provider Emergency Medicine Emergency Medical Services; PCP General Practice; Visit Provider Radiology Diagnostic Radiology | DX: M25.251 Flail joint, right hip (principal); W19.XXXA Unspecified fall, initial encounter | CPT/HCPCS: 73564 ==

== ENCOUNTER 2024-08-09 21:43 | Emergency (ER) | payer OTHER, SELFPAY ==
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
[2024-08-09 21:49] VITALS: BP 160/96; PULSE 116; O2SAT 98
[2024-08-09 21:54] VITALS: BP 134/83; PULSE 97; RESP 16; TEMP 36.9; O2SAT 99; BMI 20.7
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
[2024-08-10 00:40] VITALS: BP 117/52; PULSE 110; RESP 18; O2SAT 92
[2024-08-10 01:42] VITALS: BP 90/46; PULSE 93; RESP 16; TEMP 35.6; O2SAT 98
== END 2024-08-10 01:46 | disposition home or self-care (01) ==
PROVIDERS: Emergency Provider Emergency Medicine; PCP General Practice
DX: S00.93XA Contusion of unspecified part of head, initial encounter (principal); R51.9 Headache, unspecified; M54.2 Cervicalgia; F17.210 Nicotine dependence, cigarettes, uncomplicated; Y04.2XXA Assault by strike against or bumped into by another person, initial encounter; Y93.9 Activity, unspecified; Y92.9 Unspecified place or not applicable; Y99.8 Other external cause status
CPT/HCPCS: 70450; 99284

== ENCOUNTER → 2024-08-09 22:18 | Outpatient (BNV) | payer OTHER, SELFPAY | PROVIDERS: Emergency Provider Emergency Medicine; PCP General Practice; Visit Provider Radiology Diagnostic Radiology | DX: S09.90XA Unspecified injury of head, initial encounter (principal) | CPT/HCPCS: 70450 ==

== ENCOUNTER 2024-08-27 11:05 | Outpatient (REF) | payer OTHER, SELFPAY ==
--- OUTSIDE RECORDS SUMMARY | 2024-08-27 11:56 | XMS_ITS | Clinical Summary ---
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 [place] [facility] HISTORICAL/NON ORDERABLE LABS Final Result Performing Organization Address [facility] [place] Number [facility] [place] [address], * Hm Colonoscopy (11/20/2018) Historical Provider HEALTH MAINTENANCE Final Result from Last 3 Months or Most Recently Relevant to Health Maintenance Insurance [employer] [facility] 3 Care Teams Patient Access Associate Relationship Specialty Start Date End Date Nikki Rodríguez MD [address] [place] [address] PCP - General Family Medicine 12/30/19
== END 2024-08-27 11:06 | disposition home or self-care (01) ==
LOC: HO.MAMMO 11:05
PROVIDERS: PCP General Practice; Visit Provider General Practice
DX: Z12.31 Encounter for screening mammogram for malignant neoplasm of breast (principal)
CPT/HCPCS: 77063; 77067

== ENCOUNTER → 2024-08-27 11:30 | Outpatient (BNV) | payer OTHER, SELFPAY | PROVIDERS: PCP General Practice; Visit Provider Internal Medicine | DX: Z12.31 Encounter for screening mammogram for malignant neoplasm of breast (principal) | CPT/HCPCS: 77063; 77067 ==